=== PATIENT | male | born 1935 | race Caucasian/White ===

== ENCOUNTER 2016-08-06 09:01 | Day surgery (SDC) | payer MEDICARE, OTHER ==
[~2016-08-06] VITALS: Ht 167.6 cm; Wt 66.7 kg
[~2016-08-06 09:01] MED LIST: ASPI-973 PO; CHOL100043 PO; CYAN10008 PO; EPIN0.3P2 IJ; HYDR4CRE RC; LISI10TA PO; MELO-259 PO; METR45GE TP; OMEP20CA11 PO; PRAV40TA PO; Sodium Chloride LOK Flush 10 mL Syringe IV PRN; TADA20TA PO; fentaNYL-PF 50 mCg/mL 2 mL Inj IVPUSH PRN
[2016-08-06 09:19] VITALS: BP 145/79; PULSE 55; RESP 16; O2SAT 100
[2016-08-06] MEDS: 0.9% Sodium Chloride 1,000 ML IV SCH ×2 (09:44→10:01)
[2016-08-06 10:11] VITALS: BP 102/60; PULSE 54; RESP 16; O2SAT 95
[2016-08-06 10:23] VITALS: BP 105/58; PULSE 50; RESP 16; O2SAT 97
--- NOTE | 2016-08-06 11:06 | ENDO ---
[address] [address] ENDOSCOPY PROCEDURE PATIENT: FLY ESCAMILLA : 1935 MR#: [id number] ADMIT: 08/06/2016 JOB ID: [id number] DATE: 08/06/2016 PRIMARY PROVIDER: Ananth Perez M.D. PROCEDURE: Esophagogastroduodenoscopy with biopsy and hot snare polypectomy. 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 He remains on b.i.d. PPI to control reflux. EQUIPMENT: GIF H 180 J. SEDATION: 1. 3 mg Versed. 2. 100 mcg fentanyl. COMPLICATIONS: None identified. PROCEDURAL INFORMATION: After the risks and benefits were explained, written and verbal informed consent was obtained. The patient was brought into the endoscopy suite and placed into the left lateral decubitus position. Sedation was achieved as above with the addition of oxygen via nasal cannula and lidocaine swish and swallow. The scope was introduced into the mouth through the bite block, and advanced to the second portion of the duodenum. The scope was slowly withdrawn to carefully examine the mucosa for any defects or lesions. Retroflexed views were accomplished in the stomach. The stomach was decompressed. The scope removed from the patient who tolerated the procedure well. FINDINGS: 1. Duodenum: No pathology identified from the bulb through to the second portion. 2. Stomach: No outlet obstruction. No mass lesions. No ulcers. There was an inflammatory polyp in the mid body approximately 8 mm in maximum dimension. This was removed successfully using hot snare and retrieved using a Anna net. Otherwise, retroflexed views of the LES disclosed a small sliding hiatal hernia. 3. Esophagus: The squamocolumnar junction seemed to correlate for the most part with the top of the gastric folds. There was perhaps a very subtle extension of the salmon-colored mucosa up into the tubular esophagus and we took a biopsy to exclude the presence of specialized intestinal metaplasia. There was no nodularity, no ulceration, no evidence of active inflammation. ENDOSCOPIC DIAGNOSES: 1. 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 2. Hiatal hernia. 3. Inflammatory gastric polyp. RECOMMENDATIONS: 1. Await histopathology. 2. Continue anti-reflux protocol. 3. Surveillance endoscopy will be contingent on histo findings. If hyperplastic polyp is again identified, then I would recommend a repeat EGD in two years' time.
--- NOTE | 2016-08-08 11:56 | PATH ---
SURGICAL PATHOLOGY Attending Physician:Ashanti Decker CASE STATUS: Signed Out PATIENT NAME: FLY ESCAMILLA PID: [id number] : 1935 DATE COLLECTED:08/06/2016 18:23 SPECIMEN: 1: Esophagus, Biopsy 2: Stomach, Polyp, Biopsy CLINICAL HISTORY: 1). DISTAL ESOPHAGUS BIOPSY 2). GASTRIC POLYP FINAL DIAGNOSIS: 1.DISTAL ESOPHAGUS BIOPSY: SQUAMOUS MUCOSA AND GASTRIC CARDIA-TYPE MUCOSA NEGATIVE FOR SPECIALIZED METAPLASIA OF SILVA' S-TYPE ESOPHAGUS. Negative for dysplasia and malignancy. Negative for squamous intraepithelial eosinophils. 2.GASTRIC POLYP: HYPERPLASTIC POLYP, FOCALLY INFLAMED, INVOLVING FUNDIC MUCOSA, NEGATIVE FOR ATYPIA. Negative for Helicobacter pylori by immunohistochemistry. Negative for intestinal metaplasia by Alcian blue stain. Negative for dysplasia and malignancy. [id number] GROSS DESCRIPTION: The specimen is received in two formalin filled containers labeled with the patient's name. 1). The specimen is sublabeled "distal esophagus" and consists of a 0.3 x 0.3 x 0.2 CM portion of tissue which is entirely submitted in cassette 1A. 2). The specimen is sublabeled "gastric polyp" and consists of a 0.6 x 0.6 x 0.5 CM a portion of tissue which is bisected and entirely submitted in cassette 2A. 08/06/2016 [facility] MICRO DESCRIPTION: This test was developed and its performance characteristics determined by [employer]. It has not been cleared or approved by the [place]. Food and Drug Administration. The FDA has determined that such clearance or approval is not necessary. This test is used for clinical purposes. It should not be regarded as investigational or for research. ICD-9 CODES: CPT CODES: 1: 91416 2: 24920, 16539, 97531 Electronically Signed Out David Allen MD [facility] Pathology [facility] [address], [place] [address] Technical component performed at [facility], [address], [place], [address]
== END 2016-08-06 23:59 | disposition home or self-care (01) ==
LOC: END 09:01
PROVIDERS: ATTEND Internal Medicine Gastroenterology
DX: K31.7 Polyp of stomach and duodenum (principal); K44.9 Diaphragmatic hernia without obstruction or gangrene; K21.9 Gastro-esophageal reflux disease without esophagitis; E11.9 Type 2 diabetes mellitus without complications; E78.5 Hyperlipidemia, unspecified; I10 Essential (primary) hypertension; I25.10 Atherosclerotic heart disease of native coronary artery without angina pectoris; Z95.1 Presence of aortocoronary bypass graft; E53.9 Vitamin B deficiency, unspecified; Z79.82 Long term (current) use of aspirin
CPT/HCPCS: 43239; 43251; G0500; J7030